=== PATIENT | female | born 1970 | race Caucasian/White ===

== ENCOUNTER → 2018-01-08 | Outpatient (CLI) | payer OTHER ==
[2018-01-08 17:53] LABS: BASO % 0.5 % (0.0-1.0); EOS # 0.1 10^3/uL (0.0-0.50); EOS % 1.2 % (0.0-3.0); HEMATOCRIT 39.4 % (36.0-47.0); HEMOGLOBIN 12.8 g/dl (12.0-16.0); IMMATURE GRANULOCYTE % 0.2 % (0-3.0); LYMPH # 2.7 10^3/uL (1.5-4.5); LYMPH % 31.7 % (24.0-44.0); MEAN CORPUSCULAR HEMOGLOBIN 29.8 pg (27.0-33.0); MEAN CORPUSCULAR HGB CONC 32.5 g/dl (32.0-36.5); MEAN CORPUSCULAR VOLUME 91.8 fl (80.0-96.0); MONO # 0.8 10^3/uL (0.0-0.8); NEUTROPHILS # 4.9 10^3/uL (1.8-7.7); NEUTROPHILS % 57.4 % (36.0-66.0); PLATELET COUNT, AUTOMATED 352 10^3/uL (150-450); RED BLOOD COUNT 4.29 10^6/uL (4.00-5.40); RED CELL DISTRIBUTION WIDTH 14.6 % (11.5-14.5); WHITE BLOOD COUNT 8.6 10^3/uL (4.0-10.0)
[2018-01-08 18:26] LABS: IRON (FE) 58 UG/DL (50-170)
[2018-01-08 18:26] LABS: FREE T3 2.7 PG/ML (2.2-4.0)
[2018-01-10 08:13] LABS: DEHYDROEPIANDROSTERONE SULFATE 162.8 ug/dL (41.2-243.7)
== END ==
LOC: M WUC 15:49
DX: R53.83 Other fatigue (principal)
CPT/HCPCS: 83540

== ENCOUNTER → 2018-11-22 | Outpatient (CLI) | payer OTHER ==
[2018-11-22 17:26] LABS: BASO % 0.3 % (0.0-1.0); EOS % 0.5 % (0.0-3.0); HEMATOCRIT 39.5 % (36.0-47.0); HEMOGLOBIN 12.8 g/dl (12.0-15.5); LYMPH # 2.1 10^3/uL (1.5-4.5); LYMPH % 33.3 % (24.0-44.0); MEAN CORPUSCULAR HGB CONC 32.4 g/dl (32.0-36.5); MEAN CORPUSCULAR VOLUME 92.5 fl (80.0-96.0); MONO # 0.6 10^3/uL (0.0-0.8); MONO % 9.2 % (0.0-5.0); NEUTROPHILS # 3.6 10^3/uL (1.8-7.7); NEUTROPHILS % 56.5 % (36.0-66.0); PLATELET COUNT, AUTOMATED 332 10^3/uL (150-450); RED BLOOD COUNT 4.27 10^6/uL (4.00-5.40); WHITE BLOOD COUNT 6.3 10^3/uL (4.0-10.0)
[2018-11-22 17:58] LABS: ALBUMIN 3.3 GM/DL (3.2-5.2); ALT/SGPT 19 U/L (12-78); AMYLASE 31 U/L (25-115); BILIRUBIN,TOTAL 0.3 MG/DL (0.2-1.0); BLOOD UREA NITROGEN 9 MG/DL (7-18); CALCIUM LEVEL 8.5 MG/DL (8.5-10.1); CARBON DIOXIDE LEVEL 30 MEQ/L (21-32); CHLORIDE LEVEL 104 MEQ/L (98-107); GLOMERULAR FILTRATION RATE > 60.0 (>58); GLUCOSE, FASTING 86 MG/DL (70-100); LIPASE 123 U/L (73-393); POTASSIUM SERUM 4.1 MEQ/L (3.5-5.1); SODIUM LEVEL 140 MEQ/L (136-145); TOTAL PROTEIN 7.2 GM/DL (6.4-8.2)
== END ==
LOC: M WUC 16:23
PROVIDERS: ATTEND Physician Assistant
DX: A09 Infectious gastroenteritis and colitis, unspecified (principal)

== ENCOUNTER → 2018-11-22 | Outpatient (REF) | payer OTHER | LOC: M LAB REF 17:20 | PROVIDERS: ATTEND Physician Assistant | DX: A09 Infectious gastroenteritis and colitis, unspecified (principal) ==

== ENCOUNTER → 2018-11-23 | Outpatient (REF) | payer OTHER | LOC: M LAB REF 13:36 | PROVIDERS: ATTEND Physician Assistant | DX: A09 Infectious gastroenteritis and colitis, unspecified (principal) ==

== ENCOUNTER 2018-12-13 19:18 | Emergency (ER) | payer OTHER ==
[~2018-12-13] VITALS: Ht 162.6 cm; Wt 86.4 kg
[2018-12-13] MEDS ORDERED: LEXA1TAB2 PO (20:16)
[2018-12-13 21:45] VITALS: BP 139/88
--- NOTE | 2018-12-14 02:47 | REP ---
Clinical: Trauma/fall. Technique: AP and lateral views of the right tibia / fibula. Findings: There is a nondisplaced oblique fracture of the proximal fibular metadiaphysis. No obvious tibial fracture identified although subtle injury at the ankle cannot be excluded. Impression: Nondisplaced oblique fracture of the proximal fibular metadiaphysis. The Cannot exclude subtle injury of the distal tibia / ankle. Electronically Signed by Boris Gonsalves MD 12/14/2018 02:38 A
== END 2018-12-13 22:20 | disposition home or self-care (01) ==
LOC: M ED 19:18
DX: S82.431A Displaced oblique fracture of shaft of right fibula, initial encounter for closed fracture (principal); W00.0XXA Fall on same level due to ice and snow, initial encounter; Y92.018 Other place in single-family (private) house as the place of occurrence of the external cause; Z79.899 Other long term (current) drug therapy; Z88.1 Allergy status to other antibiotic agents; Z88.2 Allergy status to sulfonamides; Z88.8 Allergy status to other drugs, medicaments and biological substances; F17.210 Nicotine dependence, cigarettes, uncomplicated

== ENCOUNTER 2018-12-19 13:33 | Day surgery (SDC) | payer OTHER ==
[~2018-12-19] VITALS: Ht 162.6 cm; Wt 86.2 kg
[~2018-12-19 13:33] MED LIST: LEXA1TAB2 PO; LIDOCAINE 1% MDV 20ML VIAL SQ PRN
[2018-12-19] MEDS ORDERED: LR 1,000 ML IV ONE (13:45)
[2018-12-19 14:13] LABS: URINE PREG TEST NEGATIVE (NEGATIVE)
[2018-12-19] MEDS ORDERED: BUPIVACAINE HCL 0.25% 30 ML VIAL As Ordered ONE (14:21)
[2018-12-19] MEDS ORDERED: MIDAZOLAM INJ 2 MG/2 ML VIAL (J2250) As Ordered ONE ×2 (14:21→14:50)
[2018-12-19] MEDS ORDERED: fentaNYL 100 MCG/2 ML INJECTION (J3010) As Ordered ONE (14:21)
[2018-12-19] MEDS ORDERED: PROPOFOL 200 MG/20 ML VIAL As Ordered ONE ×2 (14:50→15:41)
[2018-12-19] MEDS ORDERED: MIDAZOLAM INJ 2 MG/2 ML VIAL (J2250) IV ONE (14:50)
[2018-12-19] MEDS ORDERED: fentaNYL 250 MCG/5 ML INJECTION (J3010) As Ordered ONE (14:50)
[2018-12-19] MEDS ORDERED: LIDOCAINE 2% INJ 100 MG/5 ML SDV (FOR ANES.) As Ordered ONE (14:50)
[2018-12-19] MEDS ORDERED: fentaNYL 100 MCG/2 ML INJECTION (J3010) IV ONE (14:50)
[2018-12-19] MEDS ORDERED: ONDANSETRON 4MG/2ML VIAL (J2405) As Ordered ONE (15:15)
[2018-12-19] MEDS ORDERED: dexameTHASONE 4 MG/ML 1ML VIAL (J1100) As Ordered ONE (15:15)
[2018-12-19] MEDS ORDERED: GLYCOPYRROLATE INJ 0.2 MG/ML 2 ML VIAL As Ordered ONE (15:23)
[2018-12-19] MEDS ORDERED: METOCLOPRAMIDE INJ 10MG/2ML VIAL (J2765) As Ordered ONE (16:37)
[2018-12-19] MEDS ORDERED: LR 1,000 ML IV SCH ×2 (16:45→17:00)
[2018-12-19] MEDS ORDERED: MEPERIDINE INJ 25 MG/ML VIAL (J2175) IV PRN (17:00)
[2018-12-19] MEDS ORDERED: fentaNYL 100 MCG/2 ML INJECTION (J3010) IV PRN (17:00)
[2018-12-19] MEDS ORDERED: ONDANSETRON 4MG/2ML VIAL (J2405) IV PRN (17:00)
[2018-12-19] MEDS ORDERED: PERCOCET 5MG/325MG TAB PO PRN (17:00)
[2018-12-19] MEDS ORDERED: METOCLOPRAMIDE INJ 10MG/2ML VIAL (J2765) IV PRN (17:00)
--- NOTE | 2018-12-19 17:42 | REP ---
C-ARM VIEWS RIGHT ANKLE: Multiple C-Arm views of the right ankle are performed. Two metallic screw is placed through the distal tibia and fibula. The structures are well aligned. Ankle mortise is anatomic. Fluoroscopy time: 1 minute 33 seconds. Electronically Signed by Russ Hernandez MD 12/20/2018 10:39 A
--- NOTE | 2018-12-19 17:43 | REP ---
RIGHT ANKLE: Three views of the right ankle are performed. Two metallic screws are seen transfixing the distal tibia and fibula. Ankle mortise is anatomic. Osseous structures are grossly intact. Overlying cast obscures underlying osseous detail. Electronically Signed by Russ Hernandez MD 12/20/2018 10:39 A
[2018-12-19 18:45] VITALS: BP 146/67
--- NOTE | 2018-12-21 13:21 | RO ---
DATE OF PROCEDURE: 12/19/2018 PREOPERATIVE DIAGNOSIS: Right Maisonneuve fracture. POSTOPERATIVE DIAGNOSIS: Right Maisonneuve fracture. PROCEDURE: Open reduction and internal fixation right syndesmosis. SURGEON: Majo Malik MD CADASTRAL ENGINEER: Tung Dumont PA-C ANESTHESIA: Laryngeal mask airway (LMA) anesthesia and popliteal nerve block. SPECIMENS: None. REPLACE: None. COMPLICATIONS: None. ESTIMATED BLOOD LOSS (EBL): 5 mL. DRAINS: None. IMPLANTS: Synthes 4.0 mm screw times one and 3.5 mm screw times one. CONDITION: Stable to recovery. INDICATIONS: Joni Roman is a 48-year-old female who sustained a right Maisonneuve fracture. The risks and benefits of surgery were discussed with the patient in clinic, and informed consent was obtained. She understands the risks include but are not limited to infection, damage to nerves and blood vessels, continued pain and stiffness, posttraumatic arthritis, loss of reduction, need for additional procedures, blood clots. DESCRIPTION OF PROCEDURE: The patient was met in the preoperative holding area, where the right lower extremity was marked as the correct operative site. She was then taken to the postanesthesia care unit (PACU), where she underwent a popliteal nerve block. Following this, she was taken to the operating room (OR), where she was placed in the supine position on the operating room table. Bony prominences were all padded. She received antibiotics within 30 minutes of incision. A well-padded tourniquet was applied to the right upper thigh. Right lower extremity was prepped and draped in the normal sterile fashion. An official time-out was held; the correct patient, operative site, and procedure were all verified. Appropriate radiographs were displayed in the operating room. At this point, Esmarch was used to exsanguinate the limb, and then tourniquet was inflated to 250 mmHg. It was set for approximately 36 minutes. An approximately 3-4-cm incision was made over the distal aspect of the distal fibula. Blunt dissection to the level of the bone is performed. Multiple radiographs were taken. The mortise did widen with stress. Of note, x-rays of the noninjured contralateral side had been taken previously to use as comparison for reduction. Gentle reduction of the fibula back against the tibia was performed. This was pinned in place with a 0.062 wire. Radiographs AP, lateral, and mortise radiographs were compared with the contralateral side, and the mortise was found to be reduced. After this, a 4.0 mm syndesmotic screw was placed proximally, and a 3.5 mm screw was placed distally. The 0.062 wire was removed. The ankle was found to be stable to stress. AP, lateral, and mortise views were taken, and the ankle was found to be reduced. Copious irrigation was performed, and deep tissues were closed with 2-0 Vicryl, and the skin was closed with 3-0 nylon. A sterile dressing was applied, followed by a well-padded cast. The patient was awoken from anesthesia and taken to the recovery room in stable condition. PLAN: The patient will be nonweightbearing in the right lower extremity for 3 months. I will see her back in 2 weeks for a wound check. We will have her on either Xarelto or Lovenox for deep venous thrombosis (DVT) prophylaxis, as she is a smoker and needs to be nonweightbearing for a prolonged period of time. Her cast will stay in place until her wound check.
== END 2018-12-19 18:55 | disposition home or self-care (01) ==
LOC: M SDC 13:33
PROVIDERS: ATTEND Orthopaedic Surgery
DX: S82.864A Nondisplaced Maisonneuve's fracture of right leg, initial encounter for closed fracture (principal); X58.XXXA Exposure to other specified factors, initial encounter; Y92.89 Other specified places as the place of occurrence of the external cause; Y99.9 Unspecified external cause status; Y93.9 Activity, unspecified; E03.9 Hypothyroidism, unspecified; K21.9 Gastro-esophageal reflux disease without esophagitis; Z79.899 Other long term (current) drug therapy; Z88.2 Allergy status to sulfonamides; F17.210 Nicotine dependence, cigarettes, uncomplicated
CPT/HCPCS: 27829; 64445; 73610; 76000; 84703; C1713; J0690; J1100; J2250; J2405; J2765; J3010

== ENCOUNTER 2023-09-21 21:13 | Emergency (ER) | payer OTHER ==
[~2023-09-21] VITALS: Ht 162.6 cm; Wt 84.0 kg
[~2023-09-21 21:13] MED LIST changes: -LIDOCAINE 1% MDV 20ML VIAL SQ PRN
[2023-09-21] MEDS ORDERED: OXYMETAZOLINE 0.05% NASAL SPRAY (AFRIN) ONE (23:05)
[2023-09-21 23:58] VITALS: BP 141/78; TEMP 98; O2SAT 99
== END 2023-09-22 01:13 | disposition home or self-care (01) ==
LOC: M ED 21:13 → EDBD 21:13 → M ED 09-22 01:13
DX: R04.0 Epistaxis (principal); F32.A Depression, unspecified; Z88.2 Allergy status to sulfonamides; Z88.1 Allergy status to other antibiotic agents; Z79.899 Other long term (current) drug therapy

== ENCOUNTER → 2023-11-02 | Outpatient (REF) | payer OTHER ==
[2023-11-02 22:17] LABS: AMORPHOUS SEDIMENT SMALL (NEGATIVE); APPEARANCE, URINE HAZY (CLEAR); BACTERIA, URINE AUTO NEGATIVE (NEGATIVE); BILIRUBIN, URINE AUTO NEGATIVE (NEGATIVE); BLOOD, URINE BLOOD 3+ (NEGATIVE); COLOR, URINE YELLOW (YELLOW); GLUCOSE, URINE (UA) AUTO NEGATIVE (NEGATIVE); KETONE, URINE AUTO NEGATIVE (NEGATIVE); LEUKOCYTE ESTERASE, URINE AUTO NEGATIVE (NEGATIVE); MUCUS, URINE SMALL (NEGATIVE); NITRITE, URINE AUTO NEGATIVE (NEGATIVE); PROTEIN, URINE AUTO NEGATIVE (NEGATIVE); RBC, URINE AUTO 3 /HPF (0-3); SPECIFIC GRAVITY URINE AUTO 1.015 (1.002-1.035); SQUAMOUS EPITHELIAL CELL UR AU 2 /HPF (0-6); UROBILINOGEN, URINE AUTO 0.2 mg/dL (0.0-2.0); WBC, URINE AUTO 0 /HPF (0-3)
== END ==
LOC: M LAB REF 21:57
PROVIDERS: ATTEND Physician Assistant
DX: N39.0 Urinary tract infection, site not specified (principal)

== ENCOUNTER → 2024-06-26 | Outpatient (REF) | payer OTHER ==
[2024-06-26 17:09] LABS: APPEARANCE, URINE CLEAR (CLEAR); BACTERIA, URINE AUTO 1+ (NEGATIVE); BILIRUBIN, URINE AUTO NEGATIVE (NEGATIVE); BLOOD, URINE BLOOD 2+ (NEGATIVE); COLOR, URINE STRAW (YELLOW); GLUCOSE, URINE (UA) AUTO NEGATIVE (NEGATIVE); KETONE, URINE AUTO NEGATIVE (NEGATIVE); LEUKOCYTE ESTERASE, URINE AUTO NEGATIVE (NEGATIVE); NITRITE, URINE AUTO NEGATIVE (NEGATIVE); PROTEIN, URINE AUTO NEGATIVE (NEGATIVE); RBC, URINE AUTO 0 /HPF (0-3); SPECIFIC GRAVITY URINE AUTO 1.004 (1.002-1.035); SQUAMOUS EPITHELIAL CELL UR AU 2 /HPF (0-6); UROBILINOGEN, URINE AUTO 0.2 mg/dL (0.0-2.0); WBC, URINE AUTO 0 /HPF (0-3)
[2024-06-26 18:19] LABS: Trichomonas vaginalis (AMP) NOT DETECTED (NEGATIVE)
[2024-06-26 18:42] LABS: GC DNA AMPLIFICATION NEGATIVE (NEGATIVE)
== END ==
LOC: M LAB REF 16:20
PROVIDERS: ATTEND Physician Assistant Medical
DX: Z11.3 Encounter for screening for infections with a predominantly sexual mode of transmission (principal)